=== PATIENT | male | born 1955 | race Caucasian/White ===

== ENCOUNTER 2022-07-10 15:02 | Day surgery (SDC) | payer OTHER, SELFPAY ==
[2022-07-10] VITALS (13 sets, daily range): BP systolic 84–147; BP diastolic 43–89; PULSE 63–122; RESP 12–20; TEMP 36.4–36.5; O2SAT 96–100; BMI 20.2
--- NOTE | 2022-07-10 15:31 | CT_ITS ---
FINAL REPORT CLINICAL HISTORY: concern for incarcerated hiatal hernia FINDINGS: Axial images were obtained from the lung apex to the mid abdomen by computed tomography. Coronal reformatted images were obtained. This study was performed with techniques to keep radiation doses as low as reasonably achievable, (ALARA). Individualized dose reduction techniques using automated exposure control or adjustment of mA and/or kV according to the patient's size were employed. There is no axillary adenopathy. There is no hilar or mediastinal adenopathy. 4.4 cm ascending aortic aneurysm. Heart size is normal. There is no pericardial or pleural effusion. There is an air-fluid level in the esophagus. There is mild thoracic scoliosis convex to the right. There is biapical pleural and parenchymal scarring. A 4 mm nodule is seen in the anterior right middle lobe on image 67. On image 54 in the anterior right middle lobe is a 2nd 4 mm nodule. Surgical clips are seen at the GE junction. IMPRESSION: 4.4 cm ascending aortic aneurysm. 4 mm right middle lobe nodules. Per Fleischner criteria no follow-up is recommended in a low risk patient. In a high risk patient 12 month follow-up is recommended. Reviewed, Interpreted and Dictated by Rodrigo Carrasco MD Transcribed by Daren Chang Authenticated and [facility]
--- NOTE | 2022-07-10 15:31 | CT_ITS ---
FINAL REPORT TECHNIQUE: Axial images through the abdomen and pelvis were performed without contrast. This study was performed with techniques to keep radiation doses as low as reasonably achievable, (ALARA). Individualized dose reduction techniques using automated exposure control or adjustment of mA and/or kV according to the patient's size were employed. CLINICAL HISTORY: concern for incarcerated hiatal hernia FINDINGS: ABDOMEN: The lung bases are clear. The heart size is normal. The liver parenchyma is homogeneous. The gallbladder is present. Surgical clips are seen at the GE junction. The spleen is normal. No adrenal mass is identified. The aorta is normal in caliber. There is no significant free fluid or adenopathy. There is a nonobstructing stone in left renal collecting system measuring 8 mm in greatest dimension. There is no hydronephrosis. PELVIS: The appendix is not identified. Gas and stool are seen throughout the colon. There are no abnormally dilated loops of bowel. The urinary bladder is unremarkable. There is no significant free fluid or adenopathy. IMPRESSION: Nonobstructing stone in left renal collecting system. Reviewed, Interpreted and Dictated by Rodrigo Carrasco MD Transcribed by Lis Olivarez Authenticated and . [facility]
--- NOTE | 2022-07-10 15:44 | HMH.EDGENADL ---
Discharge Plan Disposition Patient Disposition: Still a Patient Chief Complaint: PAIN Clinical Impressions Clinical Impression: Esophageal obstruction due to food impaction Discharge ED Provider: Marc Lancaster General Adult HPI General Chief complaint: PAIN Stated complaint: Meat stuck in his throat Time Seen by Provider: 07/10/22 15:15 Mode of Arrival: Ambulatory Source of Information: Patient Limitations: No Limitations Description of Symptoms (Recalled from ER Triage Doc. by RN): Pt reports has a piece of meat stuck in esophagus at approx 2pm yesterday. Pt reports unable to keep food or drinks down since then. History of Present Illness HPI narrative: Patient is a 66-year-old male who presents with concern for food bolus. He states that he does have a history of a hiatal hernia. He says that this happened approximately at 2 PM yesterday. He says that it is a piece of steak. He says that since then he has continued to feel the food obstruction. He says he has not been able to keep any food or drink down. He says that he will try to drink some water or soda but eventually he just throws it up. He locates his pain substernally. Denies any fever or chills. Related Data Allergies Allergy/AdvReac Type Severity Reaction Status Date / Time No Known Allergies Allergy Verified 07/10/22 15:21 [facility] Medical History (Updated 07/10/22 @ 18:42 by Marc Lancaster MD) Hypertension Social History (Updated 07/10/22 @ 18:18 by Mario Michelle CRNA) Smoking Status: Never smoker alcohol intake: never substance use type: denies use current occupational status: retired Travel in the last 8 weeks: None ROS Obtained: Yes All systems reviewed & no additional complaints except as documented A 14 point review of system was obtained and otherwise negative except per HPI Physical Exam General General appearance: alert and in no apparent distress Head Head exam: atraumatic, normocephalic and normal inspection Eye Eye exam: Present normal appearance, PERRL and EOMI ENT ENT exam: Present normal exam, normal oropharynx, mucous membranes moist, TM's normal bilaterally and normal external ear exam Neck Neck exam: Present normal inspection, full ROM and trachea midline; Absent meningismus or lymphadenopathy Chest Chest inspection: Present normal inspection and symmetric chest wall rise; Absent tenderness Respiratory Respiratory exam: Present normal lung sounds bilaterally; Absent respiratory distress Cardiovascular Cardiovascular exam: Present regular rate and normal rhythm; Absent JVD Abdominal Exam Abdominal exam: Present soft and normal bowel sounds; Absent distention, tenderness or guarding Extremities Exam Extremities exam: Present normal inspection, full ROM and normal capillary refill; Absent calf tenderness Back Exam Back exam: Present normal inspection; Absent tenderness Neurological Exam Neurological exam: Present alert and oriented X3 Psychiatric Psychiatric exam: Present normal affect and normal mood Skin Skin exam: Present warm, dry, intact and normal color Lymphatic Lymphatic Findings: no adenopathy Medical Decision Making Medical Records Medical records reviewed: Yes I reviewed the patient's medical records. José Miguel Inquiry Pt receiving controlled substance: No Vital Signs: 07/10/22 15:03 07/10/22 15:09 07/10/22 15:30 Temperature 97.7 F Temperature Source Oral Pulse Rate 78 68 Pulse Rate [Left Radial] Pulse Rate [Right Radial] 72 Respiratory Rate 16 20 20 Blood Pressure 122/89 117/86 Blood Pressure [Right Arm] 122/89 Blood Pressure Mean 103 95 Blood Pressure Mean [Right Arm] 100 Blood Pressure Source [Right Arm] Automatic Cuff Blood Pressure Position [Right Arm] Sitting 02 Sat by Pulse Oximetry 97 99 99 Oxygen Delivery Method Room Air Oxygen Flow Rate (LPM) 07/10/22 16:30 07/10/22 17:01 07/10/22 18:22 Temperature 97.6 F Temperature Sour
--- NOTE | 2022-07-10 15:58 | PC.NURSE ---
pt gone to ct
--- NOTE | 2022-07-10 16:18 | PC.NURSE ---
OR staff returned page for dr. lee, notified them of what pt is here for. States she will tell dr. lee and him call us back when his finished with surgery he is currently in. ER aware
--- NOTE | 2022-07-10 16:46 | PC.NURSE ---
Dr. Anton had OR staff call down to ask medical history on pt. Details given to SUNIL Salas on the phone: gastric resection r/t duodenal ulcer that perforated. Pt had an open procedure. Procedure was approx 40 [address] performed [address] West.
--- NOTE | 2022-07-10 17:41 | PC.NURSE ---
Dr Anton in to see pt
--- NOTE | 2022-07-10 17:49 | EXP.SURG.CON ---
History of Present Illness *Admission Date: 07/10/22 *Reason for visit:: Unable to swallow *History of present illness: Patient is a 66-year-old male from [facility]. His primary care provider is Fouzia Hawk. He has a prior history of laparotomy with gastric resection for perforated ulcer 40 years ago. He has had some occasional problems with dysphagia which is usually been self-limited. However, the patient does state that several years ago his esophagus was stretched in [place]. Yesterday, greater than 24 hours ago, on 07/09/2022 at approximately 2 PM, patient was eating a piece of steak and he states that he has been unable to swallow secretions since then. He has been unable to keep any food or drink down. After he drinks something he then has regurgitation. He has some substernal discomfort. He presented to the emergency department this afternoon on 07/10/2022. He was given glucagon and his symptoms of esophageal food impaction/obstruction persisted. He did have a CT scan performed which did not reveal any findings of perforation. Surgical consultation was obtained. [facility] Medical History (Updated 07/10/22 @ 17:52 by Arsalan Anton MD) Hypertension Social History Smoking Status: Never smoker alcohol intake: never current occupational status: retired Travel in the last 8 weeks: None Meds Home Medications and Allergies New Prescriptions to Start Prescriptions: Allergies Allergy/AdvReac Type Severity Reaction Status Date / Time No Known Allergies Allergy Verified 07/10/22 15:21 Exam (Inpt) Vital signs and Labs for Last 24 Hours: Temp Pulse Resp BP Pulse Ox 97.7 F 63 20 147/86 H 97 07/10/22 15:03 07/10/22 17:01 07/10/22 17:01 07/10/22 17:01 07/10/22 17:01 I & O for Labs for Last 24 Hours: Intake & Output 07/08/22 07/09/22 07/10/22 07/11/22 11:59 11:59 11:59 11:59 Weight 149 lb Constitutional: no acute distress Head: Present normocephalic Neck: Present normal inspection Respiratory: Absent accessory muscle use Cardiac: Present Reg Rate and Rhythm GI: Present soft Assessment and Plan *Assessment and plan (1) Esophageal obstruction due to food impaction: Status: Acute Category: Medical Code(s): K22.2 - Esophageal obstruction; T18.128A - Food in esophagus causing other injury, initial encounter Plan Plan to proceed with urgent endoscopy with hopeful esophageal food impaction extraction. I did explain to him the nature and details of proposed procedure along with risks and expected outcome. I explained to him as well that given the prolonged duration of his symptoms this may not be amenable to flexible endoscopic extraction he could even require transfer to tertiary facility for more definitive management.
[2022-07-10 17:56] LABS: Basophils % 0.5 % (0.1-2.0); Eosinophils # 0.1 K/mm3 (0.0-0.4); Eosinophils % 1.4 % (0.1-12.0); Hematocrit 39.5 % (42.0-52.0); Hemoglobin 12.7 g/dL (14.1-18.0); Lymphocytes # 0.9 K/mm3 (0.7-4.5); Mean Corpuscular HGB Conc 32.1 g/dL (31.8-35.4); Mean Corpuscular Hemoglobin 27.1 pg (27.0-31.2); Mean Corpuscular Volume 84.3 fl (80-94); Mean Platelet Volume 8.8 fl (7.4-10.4); Monocytes # 0.5 K/mm3 (0.1-1.0); Monocytes % 6.7 % (1.7-9.3); Neutrophils # 5.7 K/mm3 (1.8-7.8); Neutrophils % 78.3 % (37.0-80.0); Platelet Count 403 K/mm3 (142-424); Red Blood Count 4.69 M/mm3 (4.60-6.20); Red Cell Distribution Width 14.6 % (11.5-17.5); White Blood Count 7.2 K/mm3 (4.8-10.8)
--- NOTE | 2022-07-10 17:59 | PC.NURSE ---
surgery staff at
[2022-07-10 18:03] LABS: Anion Gap 15.8 mEq/L (5-15); Blood Urea Nitrogen 9 mg/dl (9-20); Calcium 9.8 mg/dl (8.4-10.2); Carbon Dioxide 31 mmol/L (22.0-30.0); Chloride 94 mmol/L (98-107); Creatinine Clearance Estimated 69 mL/min (50-200); Estimated Glomerular Filt Rate 113 ml/min (>60); GFR (African American) 137 ML/MIN (>60); Glucose 130 mg/dl (74-100); Potassium 3.8 mmoL/L (3.5-5.1); Sodium 137 mmol/L (136-145)
--- NOTE | 2022-07-10 18:07 | PC.NURSE ---
pt to ORwith anesthesia and RN
--- NOTE | 2022-07-10 18:17 | P.PN_ITS ---
[facility] Medical History (Updated 07/10/22 @ 17:52 by Arsalan Anton MD) Hypertension Social History (Updated 07/10/22 @ 17:54 by Arsalan Anton MD) Smoking Status: Never smoker alcohol intake: never substance use type: denies use current occupational status: retired Travel in the last 8 weeks: None [facility] Anesthesia Checklist Patient Identification Patient Identification: Arm Band and Verbal (Name & ) Structural Data Admitted From: Emergency Dept Planned Operative Procedure/s: EGD Consent for Planned Operative Procedure(s) Verified: Yes Verified Documents: Surgical Consent NPO Status Verified Time NPO: 08:00 Airway Assessment C-Spine Mobility Assessed: Yes TMJ Mobility Assessed: Yes Dentition: Good Dentition Neurological Assessment Level of Consciousness: Awake, Alert and Appropriate Anesthesia Plan Anesthesia Risk discussed: Yes ASA Class: II Anesthesia Type: MAC
--- NOTE | 2022-07-10 18:27 | HMH.SCOPE ---
Procedure: Date: 07/10/22 Patient Date of :: 1955 Procedure Performed:: Esophagogastroduodenoscopy with retrieval of foreign body food impaction Indications:: Patient is a 66-year-old male from [facility].? His primary care provider is Fouzia Hawk.? He has a prior history of laparotomy with gastric resection for perforated ulcer 40 years ago.? He has had some occasional problems with dysphagia which is usually been self-limited.? However, the patient does state that several years ago his esophagus was stretched in [place].? Yesterday, greater than 24 hours ago, on 07/09/2022 at approximately 2 PM, patient was eating a piece of steak and he states that he has been unable to swallow secretions since then.? He has been unable to keep any food or drink down.? After he drinks something he then has regurgitation.? He has some substernal discomfort.? He presented to the emergency department this afternoon on 07/10/2022.? He was given glucagon and his symptoms of esophageal food impaction/obstruction persisted.? He did have a CT scan performed which did not reveal any findings of perforation.? Surgical consultation was obtained. Arrangements were made for EGD. Performing Provider:: Arsalan Anton MD Referring Provider:: Marc Lancaster Sedation:: MAC sedation Procedure:: Patient was taken to endoscopy procedure room. He was positioned in lateral decubitus position. Adequate intravenous sedation was achieved with anesthesia titration of propofol. Olympus endoscope was inserted via the oropharynx. Esophagus was cannulated. Endoscope was advanced. In the distal esophagus there was some secretions and saliva noted. This was suctioned free. There was noted to be a food bolus in the distal esophagus. Initially it appeared as though this may pass into the gastric lumen but there was somewhat of a ball-valve effect as there appeared to be some luminal narrowing with evidence of possible Schatzki's ring. The food impaction bolus was able to be retrieved using the Enciso net and somewhat of a piecemeal fashion. Attempt was made to use the 3 prong grasping forceps but this merely cut through the food bolus without extraction. The small amount of residual food easily passed into the gastric lumen. There was some evidence of luminal narrowing likely at the gastroesophageal junction which was noted at approximately 45 cm. However, given the acute inflammation this was not dilated. There was evidence of altered anatomy within the gastric lumen secondary to likely prior resection. Stomach was desufflated and the endoscope was withdrawn. Findings:: Food impaction in the distal esophagus at approximately 45 cm Probable Schatzki's ring at this location Esophagitis, potentially reactive Altered gastric anatomy secondary to prior surgery Recommendations:: Recommend clear liquid diet for approximately 24 hours then soft diet Follow-up in office for potential scheduling upper endoscopy with dilatation. May obtain upper GI study to evaluate anatomy Complications:: None immediately apparent Estimated blood obtained (mL): 0
== END 2022-07-10 19:08 | disposition home or self-care (01) ==
LOC: ER 16:09 → SDC 18:07
PROVIDERS: Emergency Provider Student in an Organized Health Care Education/Training Program; Visit Provider Surgery
PROC: 0DJ08ZZ Inspection of Upper Intestinal Tract, Via Natural or Artificial Opening Endoscopic (ICD-10-PCS; CPT 43235; principal; 2022-07-10 17:45)
DX: T18.128A Food in esophagus causing other injury, initial encounter (principal); K22.2 Esophageal obstruction
CPT/HCPCS: 43247; 71250; 74176; 80048; 85025; J1610; J2405

== ENCOUNTER → 2022-08-12 07:58 | Outpatient (CLI) | payer MEDICARE, SELFPAY ==
--- NOTE | 2022-08-12 07:59 | FL_ITS ---
FINAL REPORT CLINICAL HISTORY: dysphagia 1.47 fluoro time FINDINGS: UPPER GI EXAM HISTORY: Dysphagia. PROCEDURE: The patient ingested barium. Effervescent crystals were also administered. Spot and overhead films were obtained. FINDINGS: There was aspiration of contrast during the procedure, limiting the study. No esophageal stricture is identified. A 13 mm barium tablet passes through the esophagus and into the stomach without delay. There is a very small Zenker's diverticulum. Extensive postoperative changes are seen of the stomach. The stomach empties appropriately. FLUOROSCOPY TIME: 1 minute 47 seconds. 17 radiographs were obtained. IMPRESSION: Aspiration to contrast. Speech pathology consult recommended. Small Zenker's diverticulum. No esophageal stricture. Films reviewed , interpreted and dictated by Dr. Lange. Transcribed by Cesar De La Rosa PA-C. Reviewed, Interpreted and Dictated by Arsalan Lange III, MD Transcribed by JESUS Delacruz Authenticated and [facility]
== END ==
PROVIDERS: PCP Family Medicine; Visit Provider Surgery
DX: R13.10 Dysphagia, unspecified (principal); K22.2 Esophageal obstruction; T18.128A Food in esophagus causing other injury, initial encounter
CPT/HCPCS: 74246

== ENCOUNTER 2022-09-11 08:25 | Day surgery (SDC) | payer MEDICARE, SELFPAY ==
[2022-09-09 10:31] VITALS: BMI 19.2
[2022-09-11 08:56] VITALS: BP 137/64; PULSE 59; RESP 18; TEMP 36.6; O2SAT 100
--- NOTE | 2022-09-11 09:15 | P.PN_ITS ---
[facility] Disclaimer: The information contained in this section may have been updated after the patient was seen, as this information can be updated by other users. Medical History Hypertension Migraine Sleep apnea Surgical History History of appendectomy History of colonoscopy History of esophagogastroduodenoscopy (EGD) Status post stomach removal Family History Other Family history of myocardial infarction Social History Smoking Status: Never smoker alcohol intake: never substance use type: denies use current occupational status: retired Travel in the last 8 weeks: None [facility] Anesthesia Checklist Patient Identification Patient Identification: Arm Band and Verbal (Name & ) Structural Data Admitted From: Home Planned Operative Procedure/s: EGD Consent for Planned Operative Procedure(s) Verified: Yes NPO Status Verified Time NPO: 00:00 Airway Assessment C-Spine Mobility Assessed: Yes TMJ Mobility Assessed: Yes Dentition: Good Dentition Neurological Assessment Level of Consciousness: Awake Hx Seizures: No Numbness or tingling in extremities: No Anesthesia Plan Anesthesia Risk discussed: Yes Anesthesia Plan: Verified ASA Class: III Anesthesia Type: MAC
[2022-09-11 09:16] LABS: POC Glucose,Bedside 114 (70-110)
[2022-09-11 09:28] VITALS: O2SAT 97
[2022-09-11 09:58] VITALS: BP 79/48; PULSE 75; RESP 14; TEMP 36.2; O2SAT 100
--- NOTE | 2022-09-11 09:58 | HMH.SCOPE ---
Procedure: Date: 09/11/22 Patient Date of :: 1955 Procedure Performed:: Esophagogastroduodenoscopy with biopsies and dilatation to 20 mm Indications:: Patient is a pleasant 66-year-old male from [facility]. He had a prior history of gastric resection which sounds like subtotal gastrectomy with vagotomy many decades ago for ulcer. He has had some problems with dysphagia. He previously had EGD with dilatation done in [place]. He presented on 07/10/2022 with esophageal food impaction and underwent emergent endoscopy with retrieval. Plan was made for follow-up EGD. He has had some minor self-limited dysphagia. I had him undergo upper GI which interestingly reveals findings of aspiration to contrast. Speech pathology consult recommended. Small Zenker's diverticulum. No esophageal stricture. Patient does not recall any clinical aspiration to the contrast. Performing Provider:: Arsalan Anton MD Referring Provider:: Fouzia Kathleen Sedation:: MAC sedation Procedure:: Consent was obtained patient was taken to endoscopy procedure room. Is positioned in lateral decubitus position. Adequate intravenous sedation was achieved with anesthesia titration propofol. Olympus endoscope was inserted via the oropharynx. There was some tortuosity to the esophagus consistent with possible esophageal dysmotility. Zenker's was not clearly identified or visualized. Gastroesophageal junction was encountered at approximately 45 cm. There was possibly some minor beginnings of Schatzki's ring at this location. Stomach was cannulated. There was a tiny residual gastric lumen. There was a loop small bowel anastomosis either as a gastrojejunostomy or Billroth II. Biopsy was obtained of the gastric lumen just proximal to the stricture. Also biopsy was obtained for CLOtest for H. pylori. There was some minor oozing at the biopsy site and a couple of hemoclips were deployed for hemostasis. Biopsy was obtained at the gastroesophageal junction. GE junction was dilated to 20 mm sequentially using the pneumatic dilator. A couple biopsies were obtained at the distal esophagus. Endoscope was withdrawn. Findings:: Gastroesophageal junction at 45 cm Likely beginnings of Schatzki's ring. Tiny residual gastric lumen Reconstruction with either gastrojejunostomy or more likely Billroth II. Recommendations:: Plan to follow-up on the pathology and clinical May plan for speech pathology assessment given the findings on the upper GI. Complications:: None immediately apparent Estimated blood obtained (mL): 4
[2022-09-11 10:08] VITALS: BP 81/48; PULSE 74; RESP 14; O2SAT 100
[2022-09-11 10:18] VITALS: BP 87/55; PULSE 66; RESP 16; O2SAT 100
[2022-09-11 10:58] VITALS: BP 126/70; PULSE 64; RESP 18; O2SAT 100
== END 2022-09-11 11:15 | disposition home or self-care (01) ==
PROVIDERS: PCP Family Medicine; Visit Provider Surgery
PROC: 0DJ08ZZ Inspection of Upper Intestinal Tract, Via Natural or Artificial Opening Endoscopic (ICD-10-PCS; CPT 43235; principal; 2022-09-11 09:30)
DX: R13.10 Dysphagia, unspecified (principal); Z79.899 Other long term (current) drug therapy; K29.50 Unspecified chronic gastritis without bleeding
CPT/HCPCS: 43239; 43249; 82962; 87339; 88305; 88342; C1726; J2704